=== PATIENT | male | born 1980 | race Caucasian/White ===

== ENCOUNTER 2017-01-21 08:57 | Emergency (ER) | payer SELFPAY ==
[2017-01-21 09:02] VITALS: TEMP 97.7
--- NOTE | 2017-01-21 09:09 | CPEKG ---
Heart Rate: 87 RR Interval: 690 P-R Interval: 136 QRSD Interval: 88 QT Interval: 348 QTC Interval: 419 P [place]: 67 QRS [place]: 48 T Wave [place]: 31 EKG Severity - NORMAL ECG - EKG Impression: SINUS RHYTHM Electronically Signed By: Micaela Ann 21-Jan-2017 16:31:30
[2017-01-21 09:27] LABS: % IMMATURE GRANULYOCYTES 0.6 % (0.0-1.1); ABSOLUTE IMMATURE GRANULOCYTES 0.07 10^3/uL (0.00-0.10); ADD DIFF? NO; ADD MORPH? NO; ADD SCAN? NO; ATYPICAL LYMPHOCYTE FLAG 0 (0-99); FRAGMENT RBC FLAG 0 (0-99); HEMATOCRIT 45.9 % (40.0-51.0); HEMOGLOBIN 15.7 g/dL (13.7-17.5); LEFT SHIFT FLG 0 (0-99); LIPEMIA HEMOLYSIS FLAG 90 (0-99); MEAN CELL HEMOGLOBIN 28.6 pg (27.9-34.1); MEAN CELL HEMOGLOBIN CONCENTR. 34.2 g/dL (32.4-36.7); MEAN CELL VOLUME 83.8 fL (81.5-99.8); MEAN PLATELET VOLUME 9.4 fL (8.7-11.7); PLATELET CLUMPS FLAG 0 (0-99); PLATELET COUNT 346 10^3/uL (150-400); RED BLOOD CELL COUNT 5.48 10^6/uL (4.40-6.38); RED CELL DISTRIBUTION WIDTH 13.3 % (11.5-15.2)
--- NOTE | 2017-01-21 10:01 | EDPHY ---
H & P Stated Complaint: CP since Saturday;feels achiness L shoulder/jaw Time Seen by Provider: 01/21/17 09:45 HPI/ROS: CHIEF COMPLAINT: Chest pain HISTORY OF PRESENT ILLNESS: The patient is a 36 year old male presenting with chest pain that woke him from sleep at 1am 2 nights ago. The pain was located on the right side of his chest and radiated to his left arm. The pain lasted for about 1.5 hours. He was relatively pain free yesterday, except for a very dull pressure, that was 2 out of 10. He was able to sleep last night without issue. This morning at work, the chest pain returned. The pain radiated into his jaw and down his left arm. He denies pain with deep inhalation. No nausea or diaphoresis associated with chest pain. Patient does report that it feels like he has anterior chest tightness and inability to take a deep breath. Pain described as a dull ache. Some dull discomfort has been present for last 2 days. No fevers, vomiting, cough, sputum. No leg edema. No lightheadedness or fainting. No palpitations. REVIEW OF SYSTEMS: Aside from elements discussed in the HPI, a comprehensive 10-point review of systems was reviewed and is negative. PAST MEDICAL HISTORY: No history of hypertension, diabetes, hypercholesterolemia. Family History: Mother with a stroke in her 30s. (?) SOCIAL HISTORY: No alcohol. No drug use. Positive smoker. VITAL SIGNS: Reviewed by me GENERAL: Well-developed, well-nourished, resting comfortably in no respiratory distress. Reports chest tightness 2/10. HEENT: Atraumatic. Eyes: No icterus, no injection. Mouth: moist mucous membranes. No erythema or lesions. Neck: supple with no adenopathy. LUNGS: Diminished throughout, otherwise clear to auscultation bilaterally, no wheezes, rhonchi or rales. CARDIAC: Regular rate and rhythm, mid-systolic click. ABDOMEN: Soft, nontender, nondistended, bowel sounds normal. BACK: No CVA tenderness. EXTREMITIES: No trauma. No edema. Range of motion is normal throughout. NEURO: Alert and oriented, grossly nonfocal. SKIN: Warm and dry, no rash. PSYCHIATRIC: Normal mentation, no agitation. Portions of this note were transcribed by a center medical specialist. I personally performed a history, physical exam, medical decision making, and confirmed accuracy of information the transcribed note. Source: Patient - Personal History Current Tetanus Diphtheria and Acellular Pertussis (TDAP): Yes - Medical/Surgical History Other PMH: +family hx - Social History Smoking Status: Current every day smoker Constitutional: Initial Vital Signs Temperature (C) 36.5 C 01/21/17 08:58 Heart Rate 84 01/21/17 08:58 Respiratory Rate 16 01/21/17 08:58 Blood Pressure 129/98 H 01/21/17 08:58 O2 Sat (%) 94 01/21/17 08:58 O2 Delivery Mode Room Air Allergies/Adverse Reactions: No Known Allergies Allergy (Unverified 01/21/17 09:02) Home Medications: Medication Instructions Recorded Albuterol [Proventil Inhaler HFA 1 - 2 puffs IH Q4H #1 mdi 01/21/17 (*)] predniSONE 40 mg PO DAILY #6 tab 01/21/17 Medical Decision Making - Diagnostics EKG Interpretation: The 12 lead EKG was interpreted by myself. See hard copy and/or "tracemaster" electronic copy for interpretation: Sinus rhythm. No acute ischemic changes. Imaging: X-ray: Chest was obtained. I viewed the images myself on the PACS system. My interpretation of the images is: Airways disease. The radiologist interpretation is pending at this time. I discussed the x-ray findings with the patient. ED Course/Re-evaluation: EKG is normal. Labs were ordered. Chest x-ray is pending. D-dimer and Troponin are normal. Chest x-ray shows airways disease. The patient received an albuterol nebulizer treatment. Plan to reevaluate. Patient examined after receiving a neb. Reports no significant change in his symptoms. States chest feels tight. BS remain diminished. Duoneb administered. On reexamination, patient reports significant improvement in symptoms. Feel like chest has opened up and no longer reporting tightness. Wll Dc with albuterol MDI and follow up. Differential Diagnosis: Differential diagnosis for the patient's symptoms complex was considered including but not limited to myocardial ischemia, acute coronary syndrome, pulmonary embolus, chest wall pain, pleural inflammation, bronchitis, airways disease, COPD, pulmonary infectious causes. - Data Points Laboratory Results: Laboratory Results 01/21/17 09:20 01/21/17 09:20 Medications Given: Discontinued Medications Albuterol (Proventil Neb) 3 ml IH EDNOW ONE Stop: 01/21/17 11:01 Last Admin: 01/21/17 11:21 Dose: 3 ml Albuterol/Ipratropium (Duoneb) 3 ml IH EDNOW ONE Stop: 01/21/17 11:57 Last Admin: 01/21/17 12:14 Dose: 3 ml Prednisone (Prednisone) 60 mg PO EDNOW ONE Stop: 01/21/17 12:53 Last Admin: 01/21/17 13:07 Dose: 60 mg Departure - Departure Disposition: Home, Routine, Self-Care Clinical Impression: Chest tightness, Restrictive airway disease Condition: Good Instructions: Chest Pain (ED), Reactive Airways Disease (ED) Additional Instructions: 1. Use Albuterol inhaler as directed. 2. Take Prednisone as directed. 3. Followup with Dr. Mcdonald for further observation. 4. Return to the Emergency Department with further chest pain, shortness of breath, nausea, or worsening symptoms. Referrals: Priscila Mcdoanld MD [Medical Doctor] - As per Instructions Prescriptions: Albuterol [Proventil Inhaler HFA (*)] 1 - 2 puffs IH Q4H #1 mdi predniSONE 40 mg PO DAILY #6 tab Report Scribed for: Micaela Ann Report Scribed by: Sandra Hill Date of Report: 01/21/17 Time of Report: 10:01
[2017-01-21 10:10] LABS: ANION GAP 9 mEq/L (8-16); CALCIUM 9.6 mg/dL (8.5-10.4); CARBON DIOXIDE 25 mEq/l (22-31); CHLORIDE 106 mEq/L (97-110); CREATININE 0.9 mg/dL (0.7-1.3); GLOMERULAR FILTRATION RATE > 60; GLUCOSE 94 mg/dL (70-100); POTASSIUM 4.6 mEq/L (3.5-5.2); SODIUM 140 mEq/L (134-144)
[2017-01-21 10:14] VITALS: RESP 18
[2017-01-21 10:20] LABS: TROPONIN I < 0.012 ng/mL (0-0.034)
[2017-01-21] MEDS ORDERED: ALBUTEROL 3 ML DEYVIAL IH ONE (11:00)
[2017-01-21] MEDS ORDERED: IPRATROPIUM/ALBUTEROL 3 ML DEYVIAL IH ONE (11:56)
[2017-01-21] MEDS ORDERED: predniSONE 20 MG TAB PO ONE (12:52)
[2017-01-21 13:09] VITALS: BP 121/94; PULSE 71; O2SAT 95
== END 2017-01-21 13:08 | disposition home or self-care (01) ==
DX: R07.89 Other chest pain (principal); J98.4 Other disorders of lung; F17.200 Nicotine dependence, unspecified, uncomplicated

== ENCOUNTER 2017-01-24 22:24 | Emergency (ER) | payer SELFPAY ==
[2017-01-24 22:59] VITALS: BP 145/93; PULSE 85; RESP 18; TEMP 97.7; O2SAT 96
--- NOTE | 2017-01-24 23:50 | EDPHY ---
H & P Stated Complaint: sob cp HPI/ROS: HPI CHIEF COMPLAINT: Shortness of breath HISTORY OF PRESENT ILLNESS: This patient very pleasant 36-year-old male, recently here in the emergency room on January 21, smokes tobacco he had a workup for chest pain shortness of breath with a nonischemic EKG, a chest x-ray that showed airway disease, negative troponin and negative D-dimer. Patient states that he has been taking his prednisone as prescribed however he was unable to get his albuterol inhaler filled. States he is now having a cough. Denies significant chest pain at this time. No vomiting. No fever. He is requesting that we refill his albuterol inhaler here. Past Medical History: Denies significant medical history Past Surgical History: Denies significant surgical history Social History: Smokes tobacco, denies illicit drugs or alcohol Family History: Noncontributory ROS REVIEW OF SYSTEMS: A comprehensive 10 point review of systems is otherwise negative aside from elements mentioned in the history of present illness. Exam Constitutional triage nursing summary reviewed, vital signs reviewed, awake/ alert. Eyes normal conjunctivae and sclera, EOMI, PERRLA. HENT normal inspection, atraumatic, moist mucus membranes, no epistaxis, neck supple/ no meningismus, no raccoon eyes. Respiratory faint wheezing bilaterally, normal breath sounds, no respiratory distress, no wheezing. Cardiovascular rate normal, regular rhythm, no murmur, no edema, distal pulses normal. Gastrointestinal soft, non-tender, no rebound, no guarding, normal bowel sounds, no distension, no pulsatile mass. Genitourinary no CVA tenderness. Musculoskeletal no midline vertebral tenderness, full range of motion, no calf swelling, no tenderness of extremities, no meningismus, good pulses, neurovascularly intact. Skin pink, warm, & dry, no rash, skin atraumatic. Neurologic awake, alert and oriented x 3, AAOx3, moves all 4 extremities equally, motor intact, sensory intact, CN II-XII intact, normal cerebellar, normal vision, normal speech. Psychiatric normal mood/affect. Heme/Lymph/Immune no lymphadenopathy. Differential Diagnosis: Includes but is not limited to in a particular, pneumonia, bronchitis, pneumothorax Medical Decision Making: Will give this patient a take-home inhaler of albuterol. Will perform a two view chest x-ray and EKG. Re-evaluation: ED x-ray chest two view: airway disease present. Otherwise unremarkable. EKG interpretation by me on record in [facility] system. Impression time of EKG 0033: This is sinus rhythm rate of 70, there is no appreciable acute ischemic changes specifically no ST elevation, ST depression T-wave abnormalities prolonged intervals. Unremarkable EKG. 0040: re-examination at this time due the airway disease again seen on his chest x-ray I have ordered him a DuoNeb breathing treatment. Also take, albuterol inhaler. This time he appears well nontoxic no chest pain. No hypoxia no respiratory distress. 0119: Re-evaluation this time patient resting comfortably. Received DuoNeb breathing treatment here in the emergency room due to chest x-ray showing airway disease. Feels much better safe for discharge. No chest pain or shortness of breath. No hypoxia patient does understand return emergency room if develops any worsening symptoms questions or concerns. Source: Patient - Personal History Current Tetanus/Diphtheria Vaccine: Yes Current Tetanus Diphtheria and Acellular Pertussis (TDAP): Yes - Medical/Surgical History Hx Asthma: No Hx Chronic Respiratory Disease: No Hx Diabetes: No Hx Cardiac Disease: No Hx Renal Disease: No Hx Cirrhosis: No Hx Alcoholism: No Hx HIV/AIDS: No Hx Splenectomy or Spleen Trauma: No Other PMH: +family hx - Social History Smoking Status: Current every day smoker Constitutional: Initial Vital Signs Temperature (C) 36.5 C 01/24/17 22:56 Heart Rate 85 01/24/17 22:56 Respiratory Rate 18 01/24/17 22:56 Blood Pressure 145/93 H 01/24/17 22:56 O2 Sat (%) 96 01/24/17 22:56 O2 Delivery Mode Room Air Allergies/Adverse Reactions: No Known Allergies Allergy (Unverified 01/21/17 09:02) Home Medications: Medication Instructions Recorded Albuterol [Proventil Inhaler HFA 1 - 2 puffs IH Q4H #1 mdi 01/21/17 (*)] predniSONE 40 mg PO DAILY #6 tab 01/21/17 Medical Decision Making - Data Points Medications Given: Discontinued Medications Albuterol Sulfate (Proventil Inh Prepack) 1 mdi [place] EDNOW ONE Stop: 01/25/17 00:17 Last Admin: 01/25/17 00:42 Dose: 1 mdi Departure - Departure Disposition: Home, Routine, Self-Care Clinical Impression: Bronchitis Condition: Good Instructions: Acute Bronchitis (ED) Additional Instructions: 1. Stay well-hydrated 2. please take your prednisone as prescribed 3. Your x-ray shows bronchitis. Please use her albuterol every 2 hours 2 puffs as needed for shortness of breath and wheezing. However if you get worse you have significant shortness of breath chest pain nausea vomiting or fever return to the emergency room. Referrals: NONE *PRIMARY CARE P,. [Primary Care Provider] - As per Instructions
[2017-01-25] MEDS ORDERED: ALBUTEROL INH PREPACK MDI TAKEHOME ONE (00:16)
--- NOTE | 2017-01-25 00:35 | CPEKG ---
Heart Rate: 70 RR Interval: 857 P-R Interval: 136 QRSD Interval: 84 QT Interval: 368 QTC Interval: 398 P [place]: 73 QRS [place]: 54 T Wave [place]: 29 EKG Severity - NORMAL ECG - EKG Impression: SINUS RHYTHM Preliminary Awaiting MD Review
[2017-01-25] MEDS ORDERED: IPRATROPIUM/ALBUTEROL 3 ML DEYVIAL IH ONE (00:39)
== END 2017-01-25 01:36 | disposition home or self-care (01) ==
DX: J40 Bronchitis, not specified as acute or chronic (principal); F17.200 Nicotine dependence, unspecified, uncomplicated